=== PATIENT | male | born 1935 | race Caucasian/White ===

== ENCOUNTER 2016-07-12 16:17 | Outpatient (CLI) | payer MEDICARE, OTHER | END 2016-07-12 16:18 | disposition home or self-care (01) | DX: Z48.89 Encounter for other specified surgical aftercare (principal) ==

== ENCOUNTER 2017-03-13 08:00 | Outpatient (CLI) | payer MEDICARE, OTHER ==
[2017-03-13 14:00] LABS: BASOPHILS % (AUTO) 0.7 %; EOSINOPHILS # (AUTO) 0.2 10^3/uL (0.0-0.7); EOSINOPHILS % (AUTO) 4.3 %; HCT - HEMATOCRIT 47.1 % (42.0-52.0); HGB - HEMOGLOBIN 15.4 g/dL (14.0-18.0); LYMPHOCYTES % (AUTO) 17.4 %; MEAN CORPUSCULAR HEMOGLOBIN 29.3 pg (27.0-31.0); MEAN CORPUSCULAR HGB CONC 32.7 g/dL (32.0-36.0); MEAN CORPUSCULAR VOLUME 89.7 fL (80.0-94.0); MEAN PLATELET VOLUME 9.9 fL (7.4-11.4); MONOCYTES # (AUTO) 0.7 10^3/uL (0.0-1.0); MONOCYTES % (AUTO) 12.8 %; NEUTROPHILS # (AUTO) 3.6 10^3/uL (1.5-6.6); NEUTROPHILS % (AUTO) 64.8 %; RED BLOOD COUNT 5.25 10^6/uL (4.70-6.10); RED CELL DISTRIBUTION WIDTH 14.7 % (12.0-15.0); UNCORRECTED WHITE BLOOD COUNT 5.6 x10^3/uL; WHITE BLOOD COUNT 5.6 x10^3/uL (4.8-10.8)
[2017-03-13 14:30] LABS: ALBUMIN/GLOBULIN RATIO 1.7 (1.0-2.2); BILIRUBIN,TOTAL 0.7 mg/dL (0.2-1.0); BUN - BLOOD UREA NITROGEN 25 mg/dL (6-20); CALCIUM 10.5 mg/dL (8.5-10.3); CARBON DIOXIDE - CO2 26 mmol/L (21-32); CHLORIDE 106 mmol/L (101-111); CHOL/HDL RATIO 2.8 (<5.0); CHOLESTEROL 123 mg/dL; CREATININE 1.1 mg/dL (0.6-1.2); GFR - MDRD 64 (>89); GLUCOSE 104 mg/dL (70-100); HDL CHOLESTEROL 44 mg/dL; IRON 69 ug/dL (45-182); LDL/HDL RATIO 1.3 (<3.6); POTASSIUM 4.3 mmol/L (3.5-5.0); SODIUM 139 mmol/L (135-145); TOTAL IRON BINDING CAPACITY 343 ug/dL (250-450); TOTAL PROTEIN 6.3 g/dL (6.7-8.2); TRANSFERRIN 245 mg/dL (180-329); TRIGLYCERIDES 106 mg/dL; VLDL CHOLESTEROL 21 mg/dL
== END 2017-03-13 08:01 | disposition home or self-care (01) ==
LOC: LAB.WCP 08:00
PROVIDERS: ATTEND Family Medicine
DX: G20 Parkinson's disease (principal); D50.9 Iron deficiency anemia, unspecified; I25.10 Atherosclerotic heart disease of native coronary artery without angina pectoris
CPT/HCPCS: 36415; 80053; 80061; 83540; 84466; 85025

== ENCOUNTER 2018-03-16 08:46 | Outpatient (CLI) | payer MEDICARE ==
[2018-03-16 13:01] LABS: ALBUMIN 4.3 g/dL (3.2-5.5); ALBUMIN/GLOBULIN RATIO 1.8 (1.0-2.2); ALKALINE PHOSPHATASE 80 IU/L (42-121); ALT ALANINE AMINOTRANSFERASE < 10 IU/L (10-60); AST ASPARTATE AMINOTRANSFERASE 29 IU/L (10-42); BUN - BLOOD UREA NITROGEN 18 mg/dL (6-20); CALCIUM 10.4 mg/dL (8.5-10.3); CARBON DIOXIDE - CO2 27 mmol/L (21-32); CHLORIDE 106 mmol/L (101-111); CHOL/HDL RATIO 2.3 (<5.0); CHOLESTEROL 121 mg/dL; CREATININE 0.8 mg/dL (0.6-1.2); GFR - MDRD 92 (>89); GLUCOSE 108 mg/dL (70-100); HDL CHOLESTEROL 53 mg/dL; LDL CHOLESTEROL,CALCULATED 47 mg/dL; LDL/HDL RATIO 0.9 (<3.6); SODIUM 141 mmol/L (135-145); TOTAL PROTEIN 6.7 g/dL (6.7-8.2); VLDL CHOLESTEROL 21 mg/dL
[2018-03-16 13:04] LABS: BASOPHILS % (AUTO) 0.6 %; EOSINOPHILS # (AUTO) 0.2 10^3/uL (0.0-0.7); EOSINOPHILS % (AUTO) 3.1 %; HGB - HEMOGLOBIN 15.6 g/dL (14.0-18.0); LYMPHOCYTES # (AUTO) 0.6 10^3/uL (1.5-3.5); LYMPHOCYTES % (AUTO) 9.6 %; MEAN CORPUSCULAR HEMOGLOBIN 30.8 pg (27.0-31.0); MEAN CORPUSCULAR HGB CONC 33.9 g/dL (32.0-36.0); MEAN CORPUSCULAR VOLUME 90.9 fL (80.0-94.0); MEAN PLATELET VOLUME 9.7 fL (7.4-11.4); MONOCYTES # (AUTO) 0.6 10^3/uL (0.0-1.0); MONOCYTES % (AUTO) 8.8 %; NEUTROPHILS # (AUTO) 5.2 10^3/uL (1.5-6.6); NEUTROPHILS % (AUTO) 77.9 %; PLT - PLATELET COUNT 140 10^3/uL (130-450); RED BLOOD COUNT 5.06 10^6/uL (4.70-6.10); RED CELL DISTRIBUTION WIDTH 14.6 % (12.0-15.0); WHITE BLOOD COUNT 6.7 x10^3/uL (4.8-10.8)
[2018-03-16 13:08] LABS: THYROID STIMULATING HORMONE 1.53 uIU/mL (0.34-5.60)
== END 2018-03-16 08:47 | disposition home or self-care (01) ==
LOC: LAB.WCP 08:46
PROVIDERS: ATTEND Family Medicine
DX: G20 Parkinson's disease (principal); I25.10 Atherosclerotic heart disease of native coronary artery without angina pectoris; I10 Essential (primary) hypertension; R41.3 Other amnesia
CPT/HCPCS: 36415; 80053; 80061; 82607; 83721; 83921; 84443; 85025

== ENCOUNTER 2018-11-07 14:32 | Outpatient (CLI) | payer MEDICARE ==
--- NOTE | 2018-11-07 14:56 | XRAY Report ---
Reason: CHEST PAIN,ATYPICAL Procedure Date: 11/07/2018 Accession Number: [id number] / [id number] Procedure: WCP - Chest 2 View X-Ray CPT Code: 71100 FULL RESULT: EXAM: CHEST RADIOGRAPHY EXAM DATE: 11/07/2018 02:44 PM. CLINICAL HISTORY: CHEST PAIN,ATYPICAL. COMPARISON: [facility] W/PA CHEST RT 03/31/2017 4:30 PM. TECHNIQUE: 2 views. FINDINGS: Lungs/Pleura: No change in elevation of right hemidiaphragm with associated minimal right basilar atelectasis. The lungs are otherwise clear. No pleural effusions. Mediastinum: Heart and mediastinal contours are unremarkable. Pulmonary vasculature is unremarkable. Other: Partial visualization of proximal right humeral hardware. IMPRESSION: No new pulmonary abnormality and no change. 2. No change in elevated right hemidiaphragm. RADIA
== END 2018-11-07 14:33 | disposition home or self-care (01) ==
LOC: DI.WCP 14:32
PROVIDERS: ATTEND Family Medicine
DX: R07.89 Other chest pain (principal); J98.6 Disorders of diaphragm
CPT/HCPCS: 71046

== ENCOUNTER 2018-12-02 22:09 | Emergency (ER) | payer MEDICARE ==
[2018-12-02 22:33] LABS: BASOPHILS # (AUTO) 0.1 10^3/uL (0.0-0.1); BASOPHILS % (AUTO) 0.7 %; EOSINOPHILS # (AUTO) 0.3 10^3/uL (0.0-0.7); HGB - HEMOGLOBIN 15.3 g/dL (14.0-18.0); LYMPHOCYTES # (AUTO) 1.4 10^3/uL (1.5-3.5); LYMPHOCYTES % (AUTO) 20.2 %; MEAN CORPUSCULAR HEMOGLOBIN 29.8 pg (27.0-31.0); MEAN CORPUSCULAR HGB CONC 32.7 g/dL (32.0-36.0); MEAN CORPUSCULAR VOLUME 91.2 fL (80.0-94.0); MEAN PLATELET VOLUME 10.5 fL (7.4-11.4); MONOCYTES # (AUTO) 0.8 10^3/uL (0.0-1.0); MONOCYTES % (AUTO) 11.5 %; NEUTROPHILS # (AUTO) 4.2 10^3/uL (1.5-6.6); NEUTROPHILS % (AUTO) 63.5 %; PLT - PLATELET COUNT 153 10^3/uL (130-450); RED BLOOD COUNT 5.13 10^6/uL (4.70-6.10); RED CELL DISTRIBUTION WIDTH 13.6 % (12.0-15.0); WHITE BLOOD COUNT 6.7 x10^3/uL (4.8-10.8)
[2018-12-02 22:47] LABS: ALBUMIN 4.3 g/dL (3.2-5.5); ALBUMIN/GLOBULIN RATIO 1.8 (1.0-2.2); ALKALINE PHOSPHATASE 85 IU/L (42-121); ALT ALANINE AMINOTRANSFERASE < 10 IU/L (10-60); AST ASPARTATE AMINOTRANSFERASE 30 IU/L (10-42); BILIRUBIN,TOTAL 0.7 mg/dL (0.2-1.0); BUN - BLOOD UREA NITROGEN 22 mg/dL (6-20); CALCIUM 10.5 mg/dL (8.5-10.3); CARBON DIOXIDE - CO2 21 mmol/L (21-32); CHLORIDE 106 mmol/L (101-111); CREATININE 0.8 mg/dL (0.6-1.2); GFR - MDRD 92 (>89); GLUCOSE 152 mg/dL (70-100); LIPASE 46 U/L (22-51); SODIUM 140 mmol/L (135-145); TOTAL PROTEIN 6.7 g/dL (6.7-8.2)
--- NOTE | 2018-12-02 23:22 | ED Physician Documentation ---
History of Present Illness - Stated complaint Stated Complaint: STROKE SYPTM - Chief complaint Chief Complaint: Neuro - History obtained from History obtained from: Patient, Family () - History of Present Illness Timing: Today, How many hours ago (9) - Additonal information Additional information: The patient is an 83-year-old male with a history of Parkinson's disease, who presents after an episode of losing his balance earlier today about 9 hours prior to arrival. He felt as if he was listing to the right when trying to walk. His symptoms lasted for about one hour before resolving spontaneously. He denies any associated headache, visual disturbance, speech difficulty, or decreased sensation. He denies history of similar symptoms in the past. Review of Systems Constitutional: denies: Fever, Chills Eyes: denies: Decreased vision Ears: denies: Tinnitus/ringing Nose: denies: Congestion Throat: denies: Sore throat Cardiac: denies: Chest pain / pressure Respiratory: denies: Dyspnea, Cough GI: denies: Abdominal Pain, Nausea, Vomiting : denies: Dysuria Skin: denies: Rash Musculoskeletal: denies: Back pain Neurologic: reports: Other (Feeling of being off balance, listing to the right.). denies: Focal weakness, Numbness, Difficulty speaking, Altered mental status, Headache PD PAST MEDICAL HISTORY - Past Medical History Past Medical History: Yes Cardiovascular: [place], High cholesterol, [place] Respiratory: None Neuro: Parkinson's Endocrine/Autoimmune: None GI: GERD : Frequency HEENT: Chronic vision loss, Chronic hearing loss, Other Psych: None Musculoskeletal: Osteoarthritis, Fatigue Derm: Rosacea, Other - Past Surgical History Past Surgical History: Yes Ortho: Rotator cuff repair, Other Cardiovascular: Other - Present Medications Home Medications: Ambulatory Orders Medication Instructions Recorded Confirmed Aspirin [Aspir-Low] 81 mg PO DAILY 04/08/16 04/08/16 Atorvastatin [Lipitor] 40 mg PO DAILY 04/08/16 04/11/16 Ezetimibe [Zetia] 10 mg PO QD 04/08/16 04/11/16 Lisinopril/Hydrochlorothiazide 1 each PO DAILY 04/08/16 04/11/16 [Lisinopril-Hctz 20-12.5 mg Tab] Metoprolol Succinate 25 mg PO DAILY 04/08/16 04/11/16 Multivitamin [Multiple Vitamins] 1 each PO DAILY 04/08/16 04/11/16 Omeprazole [PriLOSEC] 20 mg PO DAILY 04/08/16 04/11/16 Tetracycline HCl 100 mg PO DAILY 04/08/16 04/11/16 - Allergies Allergies/Adverse Reactions: Allergies Allergy/AdvReac Type Severity Reaction Status Date / Time enalapril Allergy Hives Verified 12/02/18 22:22 Tape AdvReac Intermediate Unknown Uncoded 12/02/18 22:22 - Living Situation Living Situation: reports: With spouse/s.o. Living Arrangement: reports: At home - Social History Does the pt smoke?: No Smoking Status: Never smoker Does the pt drink ETOH?: Yes ETOH Use: Wine Does the pt have substance abuse?: No - Immunizations Immunizations are current?: Yes - POLST Patient has POLST: Yes PD ED PE NORMAL - Vitals Vital signs reviewed: Yes (Borderline systolic hypertension initially.) - General General: Alert and oriented X 3, Well developed/nourished - HEENT HEENT: Atraumatic, PERRL, EOMI, Pharynx benign - Neck Neck: Supple, no meningeal sign, No adenopathy, No JVD - Cardiac Cardiac: RRR - Respiratory Respiratory: No respiratory distress, Clear bilaterally - Abdomen Abdomen: Soft, Non tender - Back Back: No CVA TTP - Derm Derm: No rash - Extremities Extremities: No edema, No calf tenderness / cord - Neuro Neuro: Alert and oriented X 3, 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 cook 2-12 intact, No motor deficit, No sensory deficit, Normal speech Eye Opening: Spontaneous Motor: Obeys Commands Verbal: Oriented GCS Score: 15 Results - Vitals Vitals: Oxygen O2 Source Room air - EKG (time done) 22:44 Rate: Rate (enter#) (69) Rhythm: NSR [place]: LAD, Anterior hemiblock Intervals: RBBB Ischemia: Q waves (in lead III.) Compare to prior EKG: Old EKG unavailable Computer interpretation: Agree with computer - Labs Labs: Laboratory Tests 12/02/18 12/02/18 12/02/18 22:17 22:30 22:30 WBC 6.7 RBC 5.13 Hgb 15.3 Hct 46.8 MCV 91.2 MCH 29.8 MCHC 32.7 RDW 13.6 Plt Count 153 MPV 10.5 Neut # (Auto) 4.2 Lymph # (Auto) 1.4 L [place] # (Auto) 0.8 Eos # (Auto) 0.3 Baso # (Auto) 0.1 Absolute Nucleated RBC 0.00 Nucleated RBC % 0.0 Sodium 140 Potassium 3.8 Chloride 106 Carbon Dioxide 21 Anion Gap 13.0 BUN 22 H Creatinine 0.8 Estimated GFR (MDRD) 92 Glucose 152 H POC Whole Bld Glucose 150 H Calcium 10.5 H Total Bilirubin 0.7 AST 30 ALT < 10 L Alkaline Phosphatase 85 Total Protein 6.7 Albumin 4.3 Globulin 2.4 Albumin/Globulin Ratio 1.8 Lipase 46 - Rads (name of study) Head CT Radiology: Prelim report reviewed, EMP read contemporaneously, See rad report (No acute or focal intracranial abnormality.) PD MEDICAL DECISION MAKING - ED course Complexity details: reviewed old records, reviewed results, re-evaluated patient, considered differential, d/w patient, d/w family ED course: The patient presents with history of one hour duration of dizziness, feeling off balance, the etiology of which is uncertain at this time. There is no neurologic deficit detected on examination currently, and his head CT reveals no acute intracranial abnormality. Electrocardiogram reveals no rhythm disturbance, and his CBC and chemistry panel are unremarkable except for a slightly elevated BUN of 22 with normal creatinine of 0.8. The patient demonstrates ability to ambulate in the hallway with out instability. His gait is remarkably good given his history of parkinsonism. In further discussion with him and he advises that within the last 6 months he had an carotid duplex scan which revealed no significant stenoses. I discussed with him and his the results of his workup, the importance of outpatient follow-up, as well as potentially worrisome signs or symptoms that should prompt reevaluation in the emergency department. Departure - Departure Disposition: 01 Home, Self Care Clinical Impression: Dizziness, Parkinson disease Condition: Stable Instructions: ED Dizziness [facility] Follow-Up: Darin Bagley MD [Provider Admit Priv/Credential] - Comments: Continue your previously prescribed medications. Follow-up with your primary physician within 1 week. Call to schedule an appointment. Return to the emergency department if you develop a recurrent dizziness or otherwise worsening symptoms. Discharge Date/Time: 12/03/18 00:17
--- NOTE | 2018-12-02 23:36 | CT Report ---
Reason: Dizziness; listing to the right. Procedure Date: 12/02/2018 Accession Number: [id number] / [id number] Procedure: CT - HEAD WO CPT Code: FULL RESULT: EXAM: CT HEAD EXAM DATE: 12/02/2018 11:07 PM. CLINICAL HISTORY: Dizziness; listing to the right. COMPARISON: None. TECHNIQUE: Multiaxial CT images were obtained from the foramen magnum to the vertex. Reformats: Sagittal and coronal. IV contrast: None. In accordance with CT protocol optimization, one or more of the following dose reduction techniques were utilized for this exam: automated exposure control, adjustment of mA and/or KV based on patient size, or use of iterative reconstructive technique. FINDINGS: Parenchyma: No intraparenchymal hemorrhage. No evidence of mass, midline shift, or CT findings of infarction. Chambers-white differentiation is distinct. Extraaxial Spaces: Normal for age. No subdural or epidural collections identified. Ventricles: Normal in size and position. Sinuses and Orbits: Imaged paranasal sinuses, orbits, and mastoids show no significant abnormality. Bones: No evidence of fracture or calvarial defect. Other: None. IMPRESSION: No acute or focal intracranial abnormality. RADIA
[2018-12-02 23:58] VITALS: BP 112/64
== END 2018-12-03 00:17 | disposition home or self-care (01) ==
LOC: ED 22:09
DX: R42 Dizziness and giddiness (principal); G20 Parkinson's disease
CPT/HCPCS: 36415; 70450; 80053; 83690; 85025; 93005; 99283; 99285

== ENCOUNTER 2018-12-16 22:55 | Emergency (ER) | payer MEDICARE ==
--- NOTE | 2018-12-16 23:01 | ED Physician Documentation ---
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 No: LOC, AMS, Amnesia, Nausea / vomiting, Paresthesias Symptoms improve with: Rest Symptoms worsen with: Palpation, Movement Contributing factors: No: Anticoagulated, Intoxicated Similar symptoms before: Diagnosis (patient indicates he sometimes loses his balance due to his Parkinson's disease) Recently seen: Emergency Dept (T+R from this ED 12/02/18 for ataxia/unsteady gait (symptoms had resolved by the time of evaluation and work-up including CTH was unremarkable and he was discharged home).) - Additional information Additional information: presents by private vehicle ( drove patient to ED) after patient fell down 5-7 steps 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 Denies LOC. He has a scalp laceration and c/o anterior chest pain that is distinctly worse with movement and palpation, as well as mid-level thoracic back pain, and neck pain. Review of Systems Constitutional: reports: Reviewed and negative Eyes: reports: Reviewed and negative Ears: reports: Reviewed and negative Nose: reports: Reviewed and negative Throat: reports: Reviewed and negative Cardiac: reports: Chest pain / pressure. denies: Palpitations Respiratory: reports: Reviewed and negative GI: reports: Reviewed and negative : denies: Dysuria, Frequency, Incontinent Skin: reports: Laceration (s) (scalp) Musculoskeletal: reports: Neck pain, Back pain. denies: Extremity pain, Joint pain, Extremity swelling, Joint swelling, Pain with weight bearing Neurologic: reports: Head injury. denies: Generalized weakness, Focal weakness, Numbness, Confused, Altered mental status, Headache, LOC PD PAST MEDICAL HISTORY - Past Medical History Cardiovascular: MD, High cholesterol, [place] Respiratory: None Neuro: Parkinson's Endocrine/Autoimmune: None GI: GERD : Frequency HEENT: Chronic vision loss, Chronic hearing loss, Other Psych: None Musculoskeletal: Osteoarthritis, Fatigue Derm: Rosacea, Other - Past Surgical History Past Surgical History: Yes Ortho: Rotator cuff repair, Other Cardiovascular: Other - Present Medications Home Medications: Ambulatory Orders Medication Instructions Recorded Confirmed Aspirin [Aspir-Low] 81 mg PO DAILY 04/08/16 04/08/16 Atorvastatin [Lipitor] 40 mg PO DAILY 04/08/16 04/11/16 Ezetimibe [Zetia] 10 mg PO QD 04/08/16 04/11/16 Lisinopril/Hydrochlorothiazide 1 each PO DAILY 04/08/16 04/11/16 [Lisinopril-Hctz 20-12.5 mg Tab] Metoprolol Succinate 25 mg PO DAILY 04/08/16 04/11/16 Multivitamin [Multiple Vitamins] 1 each PO DAILY 04/08/16 04/11/16 Omeprazole [PriLOSEC] 20 mg PO DAILY 04/08/16 04/11/16 Tetracycline HCl 100 mg PO DAILY 04/08/16 04/11/16 - Allergies Allergies/Adverse Reactions: Allergies Allergy/AdvReac Type Severity Reaction Status Date / Time enalapril Allergy Hives Verified 12/02/18 22:22 Tape AdvReac Intermediate Unknown Uncoded 12/02/18 22:22 - Social History Does the pt smoke?: No Smoking Status: Never smoker Does the pt drink ETOH?: Yes Does the pt have substance abuse?: No - Immunizations Immunizations are current?: Yes - POLST Patient has POLST: Yes PD ED PE NORMAL - Vitals Vital signs reviewed: Yes - General General: Alert and oriented X 3, No acute distress (NAD at rest), Well developed/nourished - HEENT HEENT: PERRL, EOMI, Moist mucous membranes - Cardiac Cardiac: RRR, No murmur - Respiratory Respiratory: No respiratory distress, Clear bilaterally - Abdomen Abdomen: Soft, Non tender - Derm Derm: Normal color, Warm and dry - Extremities Extremities: No deformity, No tenderness to palpate, Normal ROM s pain, No edema - Neuro Neuro: Alert and oriented X 3, telephonic nurse 2-12 intact, No motor deficit, No sensory deficit, Normal speech Eye Opening: Spontaneous Motor: Obeys Commands Verbal: Oriented GCS Score: 15 PD ED PE EXPANDED - HEENT HEENT Visual: 1 - laceration (2 cm) - Neck Neck: Bony TTP Results - Vitals Vitals: Vital Signs - 24 hr 12/16/18 12/16/18 12/17/18 23:01 23:09 00:41 Temperature 36.7 C Heart Rate 79 78 81 Respiratory 16 16 26 H Rate Blood Pressure 151/84 H 151/84 H 151/87 H O2 Saturation 96 97 98 12/17/18 12/17/18 00:50 01:49 Temperature 38.8 C H Heart Rate 82 83 Respiratory 23 19 Rate Blood Pressure 142/80 H 144/84 H O2 Saturation 95 94 Oxygen O2 Source Room air - EKG (time done) No standard instances Rate: Rate (enter#) (79) Rhythm: NSR [place]: LAD Intervals: Normal UT QRS: Normal Ischemia: Q waves (II, III, aVF) Computer interpretation: Disagree with computer (no ST segment abnormalities) - Labs Labs: Laboratory Tests 12/16/18 12/16/18 12/17/18 23:20 23:20 00:39 WBC 6.7 RBC 5.10 Hgb 15.7 Hct 47.5 MCV 93.1 MCH 30.8 MCHC 33.1 RDW 13.6 Plt Count 161 MPV 10.7 Neut # (Auto) 4.7 Lymph # (Auto) 1.0 L [place] # (Auto) 0.6 Eos # (Auto) 0.1 Baso # (Auto) 0.0 Absolute Nucleated RBC 0.00 Nucleated RBC % 0.0 Sodium 142 Potassium 4.1 Chloride 105 Carbon Dioxide 26 Anion Gap 11.0 BUN 26 H Creatinine 1.0 Estimated GFR (MDRD) 71 L Glucose 196 H Calcium 10.6 H Urine Color YELLOW Urine Clarity CLEAR Urine pH 7.0 Ur Specific [place] 1.010 Urine Protein NEGATIVE Urine Glucose (UA) NEGATIVE Urine Ketones TRACE Urine Occult Blood NEGATIVE Urine Nitrite NEGATIVE Urine Bilirubin NEGATIVE Urine Urobilinogen 1 (NORMAL) Ur Leukocyte Esterase NEGATIVE Ur Microscopic Review NOT INDICATED Urine Culture Comments NOT INDICATED - Rads (name of study) CT head Radiology: Prelim report reviewed, See rad report CT cervical spine Radiology: Prelim report reviewed, See rad report CT chest w/ IV contrast Radiology: Prelim report reviewed, See rad report PD MEDICAL DECISION MAKING - ED course Complexity details: reviewed old records, reviewed results, re-evaluated patient, considered differential, d/w patient, d/w family ED course: D/W Dr. Martínez at [facility], accepts transfer. Patient remained stable during ED stay. Departure - Departure Disposition: 02 Transfer Acute Care Hosp Clinical Impression: Subarachnoid hemorrhage C1 cervical fracture Qualifiers: Encounter type: initial encounter Fracture type: closed Fracture morphology: unspecified fracture morphology Fracture alignment: displaced Qualified Code(s): S12.000A - Unspecified displaced fracture of first cervical vertebra, initial encounter for closed fracture C2 cervical fracture Qualifiers: Encounter type: initial encounter Fracture type: closed Fracture morphology: type II dens Fracture alignment: posteriorly displaced Qualified Code(s): S12.111A - Posterior displaced Type II dens fracture, initial encounter for closed fracture Thoracic vertebral fracture Qualifiers: Encounter type: initial encounter Thoracic vertebra fracture level: T4 Fracture type: closed Fracture morphology: wedge compression Qualified Code(s): S22.040A - Wedge compression fracture of fourth thoracic vertebra, initial encounter for closed fracture Scalp laceration Qualifiers: Encounter type: initial encounter Qualified Code(s): S01.01XA - Laceration without foreign body of scalp, initial encounter Condition: Serious Discharge Date/Time: 12/17/18 02:28
[2018-12-16] MEDS ORDERED: IOVERSOL 320 100 ML VIAL IVP ONE (23:26)
[2018-12-16 23:29] LABS: BASOPHILS % (AUTO) 0.4 %; EOSINOPHILS # (AUTO) 0.1 10^3/uL (0.0-0.7); EOSINOPHILS % (AUTO) 1.9 %; HGB - HEMOGLOBIN 15.7 g/dL (14.0-18.0); LYMPHOCYTES % (AUTO) 15.3 %; MEAN CORPUSCULAR HEMOGLOBIN 30.8 pg (27.0-31.0); MEAN CORPUSCULAR HGB CONC 33.1 g/dL (32.0-36.0); MEAN CORPUSCULAR VOLUME 93.1 fL (80.0-94.0); MEAN PLATELET VOLUME 10.7 fL (7.4-11.4); MONOCYTES # (AUTO) 0.6 10^3/uL (0.0-1.0); MONOCYTES % (AUTO) 9.3 %; NEUTROPHILS # (AUTO) 4.7 10^3/uL (1.5-6.6); NEUTROPHILS % (AUTO) 70.6 %; PLT - PLATELET COUNT 161 10^3/uL (130-450); RED CELL DISTRIBUTION WIDTH 13.6 % (12.0-15.0); WHITE BLOOD COUNT 6.7 x10^3/uL (4.8-10.8)
[2018-12-16 23:42] LABS: CALCIUM 10.6 mg/dL (8.5-10.3)
[2018-12-17] MEDS ORDERED: IOVERSOL 320 100 ML VIAL IVP ONE (00:02)
--- NOTE | 2018-12-17 00:23 | CT Report ---
Reason: fall, chest pain and mid-level thoracic pain Procedure Date: 12/16/2018 Accession Number: [id number] / [id number] Procedure: CT - CHEST W CPT Code: FULL RESULT: EXAM: CT CHEST EXAM DATE: 12/16/2018 11:57 PM. CLINICAL HISTORY: Fall, chest pain and mid-level thoracic pain. COMPARISONS: CHEST 2 VIEW 11/07/2018 2:27 PM. TECHNIQUE: Routine helical CT imaging was performed through the chest. IV contrast: 80 mL Optiray 320. Reconstructions: Coronal and sagittal. In accordance with CT protocol optimization, one or more of the following dose reduction techniques were utilized for this exam: automated exposure control, adjustment of mA and/or KV based on patient size, or use of iterative reconstructive technique. FINDINGS: Lungs/Pleura: Basilar atelectasis. No effusion or pneumothorax. Mediastinum: Mild atherosclerotic disease. No cardiomegaly or adenopathy. Bones: New T4 compression fracture, with approximately 30% anterior height loss. No evident extension into the posterior elements. Visualized Abdomen: Renal cysts. Normal adrenal glands. Stable elevation of the right diaphragm. Other: None. IMPRESSION: New T4 compression fracture, with approximately 30% anterior height loss. No evidence of acute cardiopulmonary disease. RADIA
--- NOTE | 2018-12-17 00:24 | CT Report ---
Reason: fall, head injury Procedure Date: 12/16/2018 Accession Number: [id number] / [id number] Procedure: CT - HEAD WO CPT Code: FULL RESULT: EXAM: CT HEAD EXAM DATE: 12/16/2018 11:56 PM. CLINICAL HISTORY: Fall, head injury. COMPARISON: HEAD W/O 12/02/2018 10:54 PM. TECHNIQUE: Multiaxial CT images were obtained from the foramen magnum to the vertex. Reformats: Sagittal and coronal. IV contrast: None. In accordance with CT protocol optimization, one or more of the following dose reduction techniques were utilized for this exam: automated exposure control, adjustment of mA and/or KV based on patient size, or use of iterative reconstructive technique. FINDINGS: Parenchyma: No intraparenchymal hemorrhage. No evidence of mass, midline shift, or CT findings of infarction. Chambers-white differentiation is distinct. There is mild chronic microvascular ischemic change in the deep white matter bilaterally. Extraaxial Spaces: There is mild age-related generalized cerebral volume loss. There is subtle hyperdensity in the interhemispheric fissure adjacent to the anterior body of the corpus callosum which is new compared to 12/02/2018. This finding is suspicious for a small volume of subarachnoid hemorrhage. No subarachnoid blood is identified elsewhere. No evidence of subdural or epidural hematoma. Ventricles: Normal in size and position. Sinuses and Orbits: Imaged paranasal sinuses, orbits, and mastoids show no significant abnormality. Bones: No evidence of fracture or calvarial defect. Other: None. IMPRESSION: 1. There is subtle hyperdensity in the interhemispheric fissure adjacent to the corpus callosum which is new compared to 12/02/2018. This is compatible with a small volume of interhemispheric subarachnoid blood. No additional intracranial hemorrhage is identified. 2. There is no intracranial mass-effect. 3. No skull fracture. RADIA The critical result notification system was initiated by Dr. Dixon Cabral at 12:19 AM on 12/17/2018. The above critical result findings were discussed with Nelson Aggarwal by Dr. Dixon Cabral at 12:21 AM on 12/17/2018.
--- NOTE | 2018-12-17 00:37 | CT Report ---
Reason: fall, neck pain Procedure Date: 12/16/2018 Accession Number: [id number] / [id number] Procedure: CT - CERVICAL SPINE WO CPT Code: FULL RESULT: EXAM: CT CERVICAL SPINE WITHOUT CONTRAST DATE: 12/16/2018 11:57 PM. HISTORY: Fall, neck pain. COMPARISONS: HEAD W/O 12/02/2018 10:54 PM. TECHNIQUE: Thin-section axial images were acquired of the cervical spine without contrast. Post-processing: Coronal and sagittal reformats. Other: None. In accordance with CT protocol optimization, one or more of the following dose reduction techniques were utilized for this exam: automated exposure control, adjustment of mA and/or KV based on patient size, or use of iterative reconstructive technique. FINDINGS: There is an acute fracture involving the base of the dens (type II odontoid fracture). This fracture is slightly displaced with approximately 1-2 mm of posterior displacement of the dens in relation to the body of C2. There is also slight posterior angulation of the dens in relation to the body of C2. Acute fractures are also identified involving the posterior arch of C1 bilaterally. The fracture on the right is nondisplaced. However, the fracture on the left is slightly displaced and involves the foramen for the left vertebral artery. No definite acute fractures identified and the anterior arch of C1. Interspace Levels/Facets: There is moderate multilevel cervical spondylosis and degenerative disk disease involving the C4-C5, C5-C6, and C6-C7 levels. At C5-C6, posterior endplate spurring and disk bulging results in [id number] central canal narrowing. There is no significant canal stenosis at the remaining cervical levels. Uncovertebral and facet hypertrophy contributes to moderate bilateral foraminal stenosis at the C4-C5, C5-C6, and C6-C7 levels. Musculature: Normal. No fatty atrophy. Other: There is mild swelling of the prevertebral soft tissues anterior to the C1-C2 level. The lung apices are clear. IMPRESSION: 1. There is an acute slightly displaced and angulated fracture involving the base of the dens (type II odontoid fracture). The dens is tilted slightly posteriorly. No significant canal narrowing. 2. There are acute appearing fractures involving the posterior arch of C1 bilaterally. The fracture on the right is nondisplaced. The fracture on the left is slightly displaced and involves the foramen for the left vertebral artery. 3. There is moderate spondylosis and degenerative disk disease involving the C4-C5 through C6-C7 levels as discussed above. RADIA The critical result notification system was initiated by Dr. Dixon Cabral at 12:24 AM on 12/17/2018. The above critical result findings were discussed with Nelson Aggarwal by Dr. Dixon Cabral at 12:28 AM on 12/17/2018.
[2018-12-17 01:06] LABS: BILIRUBIN,URINE NEGATIVE (NEGATIVE); GLUCOSE, URINE (UA) NEGATIVE (NEGATIVE); KETONES,URINE (UA) TRACE mg/dL (NEGATIVE); LEUKOCYTE ESTERASE, URINE NEGATIVE (NEGATIVE); NITRITE,URINE NEGATIVE (NEGATIVE); OCCULT BLOOD,URINE NEGATIVE (NEGATIVE); PROTEIN,URINE NEGATIVE (NEGATIVE); UROBILINOGEN,URINE 1 (NORMAL) E.U./dL (NORMAL)
[2018-12-17 01:08] LABS: CLARITY,URINE CLEAR (CLEAR)
[2018-12-17 01:49] VITALS: BP 144/84
[2018-12-17] MEDS ORDERED: TETANUS/DIPHTHERIA/PERTUSSIS 0.5 ML SYRINGE IM ONE (01:49)
== END 2018-12-17 02:28 | disposition short-term general hospital (02) ==
LOC: ED 22:55
DX: S06.6X0A Traumatic subarachnoid hemorrhage without loss of consciousness, initial encounter (principal); S01.01XA Laceration without foreign body of scalp, initial encounter; S12.110A Anterior displaced Type II dens fracture, initial encounter for closed fracture; S12.000A Unspecified displaced fracture of first cervical vertebra, initial encounter for closed fracture; S22.040A Wedge compression fracture of fourth thoracic vertebra, initial encounter for closed fracture; R07.9 Chest pain, unspecified; W10.8XXA Fall (on) (from) other stairs and steps, initial encounter; Y92.009 Unspecified place in unspecified non-institutional (private) residence as the place of occurrence of the external cause; Z23 Encounter for immunization; G20 Parkinson's disease; M50.321 Other cervical disc degeneration at C4-C5 level; M47.812 Spondylosis without myelopathy or radiculopathy, cervical region; Z79.82 Long term (current) use of aspirin
CPT/HCPCS: 36415; 70450; 71260; 72125; 80048; 81003; 85025; 90471; 90715; 93005; 99285; Q9967; 81001; 84484; 87086